=== PATIENT | male | born 1985 | race Caucasian/White ===

== ENCOUNTER 2017-01-06 06:27 | Emergency (ER) | payer SELFPAY ==
[2017-01-06] MEDS ORDERED: NACL 0.9% 1000 ML 1,000 ML IV ONE (06:42)
--- NOTE | 2017-01-06 06:53 | Emergency Department Report ---
ED Shortness of Breath HPI - General Chief Complaint: Dyspnea/Respdistress Stated Complaint: DIFFICULTY IN BREATHING Time Seen by Provider: 01/06/17 06:31 Source: patient, EMS, RN notes reviewed Mode of arrival: Stretcher Limitations: No Limitations - History of Present Illness Initial Comments: 31-year-old male presents to the emergency department via EMS complaining of difficulty breathing. Patient states he was recently diagnosed with acute bronchitis, but he is not currently on any medications. He states over the past 2 months he has been having progressively worsening difficulty breathing. He reports shortness of breath on exertion. Symptoms are worse at night when he lies down. He states he wakes up coughing, and has approximately 30 minutes of continuous coughing before he is able to go back to sleep. This morning at approximately 5 AM, the patient states his symptoms became worse. He reports tightness in the center of his chest. Cough has been productive of white sputum. He denies fever. EMS was administered 2 albuterol nebulizer treatments , 125 mg of IV Solu-Medrol, and 2 g of IV magnesium. Patient reports feeling better after these treatments. There are no other complaints. MD Complaint: shortness of breath -: Gradual, month(s) (2) Severity: mild Pain Scale: 3 Quality: other (tightness) Consistency: constant Improves With: bronchodilators Worsens With: lying flat Context: recent URI Associated Symptoms: chest pain, cough, sputum production Treatments Prior to Arrival: oxygen, bronchodilator, other (steroids, magnesium) - Related Data Home Oxygen Therapy: No Previous Rx's Medication Instructions Recorded Last Taken Type ALBUTEROL Inhaler [Proair] 2 puff IH QID PRN #1 inha 01/06/17 Unknown Rx predniSONE [Deltasone] 3 tab PO QDAY #15 tab 01/06/17 Unknown Rx Allergies Allergy/AdvReac Type Severity Reaction Status Date / Time No Known Allergies Allergy Verified 01/06/17 06:37 ED Review of Systems ROS: Stated complaint: DIFFICULTY IN BREATHING Other details as noted in HPI Comment: All other systems reviewed and negative Respiratory: cough, shortness of breath, SOB with exertion Cardiovascular: chest pain ED Past Medical Hx - Past Medical History Previous Medical History?: Yes Additional medical history: bronchitis - Surgical History Past Surgical History?: No - Family History Family history: diabetes - Social History Smoking Status: Current Every Day Smoker Substance Use Type: Alcohol - Medications Home Medications: Home Medications Medication Instructions Recorded Confirmed Last Taken Type ALBUTEROL Inhaler [Proair] 2 puff IH QID PRN #1 inha 01/06/17 Unknown Rx predniSONE [Deltasone] 3 tab PO QDAY #15 tab 01/06/17 Unknown Rx ED Physical Exam - General Limitations: No Limitations General appearance: alert, in no apparent distress - Head Head exam: Present: atraumatic, normocephalic - Eye Eye exam: Present: normal appearance, PERRL, EOMI - ENT ENT exam: Present: normal exam, normal orophraynx, mucous membranes moist - Neck Neck exam: Present: normal inspection, full ROM. Absent: tenderness - Respiratory Respiratory exam: Present: wheezes (posterior bilateral diffuse expiratory). Absent: respiratory distress, chest wall tenderness, accessory muscle use - Cardiovascular Cardiovascular Exam: Present: regular rate, normal rhythm, normal heart sounds - GI/Abdominal GI/Abdominal exam: Present: soft, normal bowel sounds. Absent: distended, tenderness - Extremities Exam Extremities exam: Present: normal inspection, full ROM. Absent: tenderness - Back Exam Back exam: Present: normal inspection, full ROM. Absent: tenderness - Neurological Exam Neurological exam: Present: alert, oriented X3. Absent: motor sensory deficit - Skin Skin exam: Present: warm, dry, intact ED Course Vital Signs 01/06/17 01/06/17 01/06/17 06:24 06:32 06:37 Temperature 98.8 F Pulse Rate 88 94 H Pulse Rate [ Throughout] Respiratory 22 Rate Respiratory Rate [ Throughout] Blood Pressure Blood Pressure [Left] O2 Sat by Pulse 97 97 98 Oximetry 01/06/17 01/06/17 01/06/17 06:42 07:00 08:19 Temperature Pulse Rate 89 103 H 91 H Pulse Rate [ Throughout] Respiratory 20 Rate Respiratory Rate [ Throughout] Blood Pressure 106/56 130/83 Blood Pressure 106/56 [Left] O2 Sat by Pulse 97 91 93 Oximetry 01/06/17 01/06/17 01/06/17 09:00 09:49 09:50 Temperature Pulse Rate 85 Pulse Rate [ 92 H 104 H Throughout] Respiratory Rate Respiratory 17 19 Rate [ Throughout] Blood Pressure 125/82 Blood Pressure [Left] O2 Sat by Pulse 91 Oximetry 01/06/17 10:01 Temperature Pulse Rate 108 H Pulse Rate [ Throughout] Respiratory Rate Respiratory Rate [ Throughout] Blood Pressure 102/70 Blood Pressure [Left] O2 Sat by Pulse 93 Oximetry ED Medical Decision Making - Lab Data Result diagrams: 01/06/17 06:47 01/06/17 06:47 - EKG Data -: EKG Interpreted by Me EKG shows normal: sinus rhythm, axis, intervals, QRS complexes, ST-T waves Rate: normal - EKG Data When compared to previous EKG there are: previous EKG unavailable Interpretation: normal EKG - Radiology Data Radiology results: report reviewed Chest x-ray shows no acute cardiopulmonary abnormality. - Medical Decision Making Lab and imaging results reviewed and discussed with the patient. Patient reports feeling at baseline following nebulizer treatments. Patient will be discharged home at this time. Patient is instructed to stop smoking in order to prevent recurrences of his condition. - Differential Diagnosis acute bronchitis, pneumonia, bronchospasm Critical care attestation.: If time is entered above; I have spent that time in minutes in the direct care of this critically ill patient, excluding procedure time. ED Disposition Clinical Impression: Asthmatic bronchitis Qualifiers: Asthma severity: mild intermittent Asthma complication type: with acute exacerbation Qualified Code(s): J45.21 - Mild intermittent asthma with (acute) exacerbation Disposition: DISCHARGED TO HOME OR SELFCARE Is pt being admited?: No Condition: Stable Instructions: Acute Bronchitis (ED) Prescriptions: ALBUTEROL Inhaler [Proair] 2 puff IH QID PRN #1 inha PRN Reason: Shortness Of Breath predniSONE [Deltasone] 3 tab PO QDAY #15 tab Referrals: PRIMARY CARE, [Primary Care Provider] - 3-5 Days Time of Disposition: 10:12
[2017-01-06 07:18] LABS: Basophils % (Auto) 0.7 % (0.0-1.8); Eosinophils % (Auto) 7.3 % (0.0-4.3); Hematocrit 46.8 % (35.5-45.6); Hemoglobin 15.6 gm/dl (11.8-15.2); Mean Corpuscular HGB Conc 33 % (32-34); Mean Corpuscular Hemoglobin 29 pg (28-32); Mean Corpuscular Volume 88 fl (84-94); Platelet Count 203 K/mm3 (140-440); Red Blood Count 5.32 M/mm3 (3.65-5.03); Red Cell Distribution Width 13.2 % (13.2-15.2); White Blood Count 6.2 K/mm3 (4.5-11.0)
--- NOTE | 2017-01-06 07:21 | XRay Report ---
AP CHEST: HISTORY: Dyspnea AP view of the chest demonstrates a normal mediastinal and cardiac contour with clear lungs and normal bony and soft tissue structures. IMPRESSION: Unremarkable AP chest.
[2017-01-06 07:23] LABS: Anion Gap 18 mmol/L; BUN/Creatinine Ratio 25.71; Blood Urea Nitrogen 18 mg/dL (9-20); Calcium 8.8 mg/dL (8.4-10.2); Carbon Dioxide 24 mmol/L (22-30); Chloride 104.5 mmol/L (98-107); Glucose 110 mg/dL (75-100); Potassium 3.9 mmol/L (3.6-5.0); Sodium 143 mmol/L (137-145)
[2017-01-06] MEDS ORDERED: PROVENTIL IH ONE (09:19)
[2017-01-06 10:09] VITALS: BP 102/70
== END 2017-01-06 10:23 | disposition home or self-care (01) ==
LOC: ED 06:27
DX: J45.21 Mild intermittent asthma with (acute) exacerbation (principal); F17.200 Nicotine dependence, unspecified, uncomplicated
CPT/HCPCS: 36415; 71010; 80048; 83735; 85025; 93005; 93010; 94640; 96360; 99285